=== PATIENT | male | born 1995 | race Caucasian/White ===

== ENCOUNTER 2022-11-05 09:26 | Emergency (ER) | payer MEDICAID, OTHER ==
[~2022-11-05] VITALS: Ht 162.6 cm; Wt 55.0 kg
[2022-11-05 09:39] VITALS: O2SAT 100
[2022-11-05 10:50] LABS: CLARITY URINE CLEAR (CLEAR); COLOR URINE YELLOW (YELLOW); GLUCOSE URINE NEGATIVE (NEGATIVE); KETONES URINE NEGATIVE (NEGATIVE); LEUKOCYTE ESTERASE URINE NEGATIVE (NEGATIVE); NITRITE URINE NEGATIVE (NEGATIVE); OCCULT BLOOD URINE NEGATIVE (NEGATIVE); PH URINE 5.5 (4.5-8.0); PROTEIN URINE TRACE (NEGATIVE); SPECIFIC GRAVITY URINE 1.029 (1.005-1.030)
[2022-11-05 10:57] LABS: SQUAMOUS EPITHELIAL CELL URINE 1+ /lpf (RARE/1+); YEAST URINE NONE SEEN
[2022-11-05] MEDS ORDERED: FLUC150T46 MT (11:18)
[2022-11-05] MEDS ORDERED: SULF1TAB48 MT (11:18)
[2022-11-05] MEDS ORDERED: CETI-338 PO (11:18)
[2022-11-05] MEDS ORDERED: CLOT15CR27 TP (11:18)
[2022-11-05 11:31] LABS: MUCUS URINE 2+ /lpf (NONE/TRACE)
[2022-11-05 11:32] LABS: CALCIUM OXALATE CRYSTALS URINE 1+ /lpf; RBC URINE 0-2 /hpf (0-2)
[2022-11-05 11:33] LABS: BACTERIA URINE FEW
[2022-11-05 11:45] VITALS: BP 130/80; PULSE 98; RESP 16; TEMP 98.6
[2022-11-07 08:07] LABS: CHLAMYDIA TRACHOMATIS NAA Negative (Negative); NEISSERIA GONORRHOEAE NAA Negative (Negative)
== END 2022-11-05 11:49 | disposition home or self-care (01) ==
LOC: ER 09:26
DX: N48.1 Balanitis (principal)
CPT/HCPCS: 81003; 87491; 87591; 99283

== ENCOUNTER 2022-11-17 14:41 | Emergency (ER) | payer OTHER ==
[~2022-11-17] VITALS: Ht 165.1 cm; Wt 56.0 kg
[~2022-11-17 14:41] MED LIST: CETI-338 PO; CLOT15CR27 TP; FLUC150T46 MT; SULF1TAB48 MT
[2022-11-17 14:49] VITALS: BP 105/74; PULSE 112; RESP 20; TEMP 98.1; O2SAT 99
[2022-11-17] MEDS ORDERED: CEPH500T MT (16:15)
== END 2022-11-17 17:01 | disposition home or self-care (01) ==
LOC: ER 14:41
DX: S60.444A External constriction of right ring finger, initial encounter (principal); X58.XXXA Exposure to other specified factors, initial encounter; Y93.89 Activity, other specified; Y92.89 Other specified places as the place of occurrence of the external cause; Y99.8 Other external cause status
CPT/HCPCS: 99284